=== PATIENT | male | born 1990 ===

== ENCOUNTER 2017-10-14 00:31 | Emergency (ER) | payer MEDICAID, OTHER ==
[2017-10-14 00:39] VITALS: BP 119/74; PULSE 67; RESP 20; TEMP 98.4; O2SAT 97
--- NOTE | 2017-10-14 01:16 | C.PDOC ---
History Of Present Illness 27 year old male presents to the ER with a complaint of decreased hearing from his right ear. Denies ear pain, ear discharge, or fever. Time Seen by Provider: 10/14/17 00:43 Chief Complaint (Nursing): ENT Problem History Per: Patient History/Exam Limitations: None Onset/Duration Of Symptoms: Days Current Symptoms Are (Timing): Still Present Quality (Ear): Other (Decreased hearing). denies: Pain W/Touch, Discharge Past Medical History Reviewed: Historical Data, Nursing Documentation, Vital Signs Vital Signs: Last Vital Signs Temp 98.4 F 10/14/17 00:35 Pulse 67 10/14/17 00:35 Resp 20 10/14/17 00:35 BP 119/74 10/14/17 00:35 Pulse Ox 97 10/14/17 01:56 Family History: States: Unknown Family Hx - Social History Hx Alcohol Use: No Hx Substance Use: No Review Of Systems Constitutional: Negative for: Fever, Chills ENT: Positive for: Other (Decreased hearing from right ear). Negative for: Ear Pain, Ear Discharge Physical Exam - Physical Exam Appears: Non-toxic, No Acute Distress Skin: Normal Color, Warm, Dry Head: Atraumatic, Normacephalic Eye(s): bilateral: Normal Inspection Ear(s): Left: Other (moderate amount of cerumen), Right: TM Obscured By Wax ( cerumen impaction) Nose: Normal, No Flaring Oral Mucosa: Moist Throat: Normal, No Erythema, No Exudate, No Drooling Neck: Normal ROM Chest: Symmetrical Cardiovascular: Rhythm Regular, No Murmur Respiratory: Normal Breath Sounds, No Wheezing Neurological/Psych: Oriented x3, Normal Speech ED Course And Treatment O2 Sat by Pulse Oximetry: 97 (Room air) Pulse Ox Interpretation: Normal Medical Decision Making Medical Decision Making: Patient is resting comfortably in the ER in no acute distress, vitals are stable , will discharge home with Rx and instructions to follow up with ENT for further evaluation. Disposition Counseled Patient/Family Regarding: Diagnosis, Need For Followup, Rx Given - Disposition Referrals: Andrea Winston MD [Staff Provider] - Disposition: HOME/ ROUTINE Disposition Time: 01:14 Condition: GOOD Additional Instructions: Apply drops to ear 3 times a day for at least 3-4 days Follow up with ENT or return for ear lavage if not improved Prescriptions: Carbamide Peroxide [Debrox 15 Ml] 10 drop AU TID #1 bottle Instructions: Ear Wax Impaction (DC) Forms: [employer] (Persian) - POA Present On Arrival: None - Clinical Impression Clinical Impression: Impacted cerumen of right ear - PA / CIVIL PREPAREDNESS COORDINATOR / Resident Statement MD/DO has reviewed & agrees with the documentation as recorded. - Scribe Statement The provider has reviewed the documentation as recorded by the Scribe Chandler Krishnamurthy All medical record entries made by the Jimibelissa were at my direction and personally dictated by me. I have reviewed the chart and agree that the record accurately reflects my personal performance of the history, physical exam, medical decision making, and the department course for this patient. I have also personally directed, reviewed, and agree with the discharge instructions and disposition.
== END 2017-10-14 01:30 | disposition home or self-care (01) ==
LOC: C.ER 00:31
DX: H61.21 Impacted cerumen, right ear (principal)